=== PATIENT | female | born 1980 | race Hispanic/Latino ===

== ENCOUNTER 2018-04-17 10:02 | Outpatient (CLI) | payer OTHER ==
--- NOTE | 2018-04-17 14:05 | CT ---
CT ABDOMEN AND PELVIS WITH IV CONTRAST: Multiple axial tomograms obtained through the abdomen and pelvis with IV enhancement. Oral contrast was administered. INDICATION: Left lower quadrant pain. COMPARISON: Comparison is made to a CT abdomen and pelvis dated 01/13/16. FINDINGS: Lung bases clear. Liver, spleen, and pancreas are unremarkable. Stomach and duodenum unremarkable. Adrenal glands appear normal. Kidneys unremarkable. No hydronephrosis. Small bowel loops appear normal. Appendix is not definitely identified. Colon appears unremarkable. Images through the pelvis show a mildly prominent uterus. The endometrium is mildly prominent. Both ovaries are identified and appear unremarkable. Possible involuting cysts from the right ovary show s some peripheral enhancement. No free fluid. Retroperitoneum shows nonspecific lymph nodes which a ppears table from prior exam. Aorta is unremarkable. Asymmetric sclerosis along the iliac side of the left SI joint, stable finding. IMPRESSION: 1. Mildly prominent endometrium. Uterine size is also mildly prominent. 2. Otherwise, no acute intraabdominal process identified. POS: [facility]
== END 2018-04-17 10:03 | disposition home or self-care (01) ==
LOC: SCSCT 10:02
PROVIDERS: ATTEND Internal Medicine
DX: K43.2 Incisional hernia without obstruction or gangrene (principal)
CPT/HCPCS: 74177

== ENCOUNTER 2020-01-01 09:05 | Outpatient (CLI) | payer OTHER ==
--- NOTE | 2020-01-01 10:05 | ULT ---
Exam: Pelvic ultrasound including Transabdominal, Transvaginal, And Vascular Duplex with color and spectral Doppler imaging: HISTORY: Pelvic and perineal pain, left lower quadrant pain COMPARISON: None FINDINGS: The uterus is 11.5 x 6.6 x 5.3 cm Endometrial thickness:1.0 cm Right ovary:2.2 x 1.9 x 1.7 cm Left ovary:3.3 x 1.7 x 1.8 cm with a 0.8 x 1.0 cm cyst. No abscess or significant abnormal fluid collection. Vascular duplex examination demonstrates no evidence for ovarian torsion IMPRESSION: Upper range of normal size uterus. Small left ovarian cyst.
== END 2020-01-01 09:06 | disposition home or self-care (01) ==
LOC: BICULT 09:05
PROVIDERS: ATTEND Obstetrics & Gynecology
DX: R10.2 Pelvic and perineal pain (principal); N83.202 Unspecified ovarian cyst, left side
CPT/HCPCS: 76856

== ENCOUNTER 2020-08-01 10:10 | Outpatient (CLI) | payer OTHER ==
--- NOTE | 2020-08-01 10:54 | RAD ---
EXAM: 3 views of the right shoulder HISTORY: Shoulder pain COMPARISON: PET/CT 07/21/2020 FINDINGS: There is no evidence of acute fracture or dislocation. No degenerative changes are present. No soft tissue swelling is seen. There is a 1.0 cm nodule projecting over the right upper lobe. This was not hypermetabolic on prior PET/CT. IMPRESSION: No evidence of acute osseous abnormality.
== END 2020-08-01 10:11 | disposition home or self-care (01) ==
LOC: BICRAD 10:10
PROVIDERS: ATTEND Internal Medicine
DX: M25.511 Pain in right shoulder (principal)

== ENCOUNTER 2020-10-26 09:19 | Outpatient (CLI) | payer OTHER ==
--- NOTE | 2020-10-26 09:43 | RAD ---
EXAM: Two views chest PROVIDED CLINICAL HISTORY: Dyspnea COMPARISON: 09/21/2014 FINDINGS: Cardiac and mediastinal silhouette appears within normal limits. Lungs appear free of significant opa city. No pleural fluid or pneumothorax apparent. IMPRESSION: No evidence for an acute cardiopulmonary process.
== END 2020-10-26 09:20 | disposition home or self-care (01) ==
LOC: BICRAD 09:19
PROVIDERS: ATTEND Internal Medicine Critical Care Medicine
DX: R06.00 Dyspnea, unspecified (principal)
CPT/HCPCS: 71046

== ENCOUNTER 2020-12-28 11:47 | Outpatient (CLI) | payer OTHER ==
--- NOTE | 2020-12-28 13:36 | MMO ---
Bilateral MAMMO Bilat Screen [facility]. CLINICAL HISTORY: Patient is 40 years old and is seen for screening. The patient has no family history of breast cancer. The patient has no personal history of cancer. VIEWS: The views performed were: bilateral craniocaudal with tomosynthesis and bilateral mediolateral oblique with tomosynthesis. This study has been interpreted with the assistance of computer-aided detection. MAMMOGRAM FINDINGS: The breasts are heterogeneously dense, which could obscure a lesion on mammography. Benign calcifications are noted bilaterally. There are no suspicious masses, suspicious calcifications, or new areas of architectural distortion. IMPRESSION: THERE IS NO MAMMOGRAPHIC EVIDENCE OF MALIGNANCY. A ROUTINE FOLLOW-UP MAMMOGRAM IN 1 YEAR IS RECOMMENDED. THE RESULTS OF THIS EXAM WERE SENT TO THE PATIENT. ACR BI-RADS Category 2 - Benign finding MAMMOGRAPHY NOTE: 1. A negative mammogram report should not delay a biopsy if a dominant of clinically suspicious mass is present. 2. Approximately 10% to 15% of breast cancers are not detected by mammography. 3. Adenosis and dense breasts may obscure an underlying neoplasm. Reported by: SHARON DIAZ MD Electonically Signed: [id number]
== END 2020-12-28 11:48 | disposition home or self-care (01) ==
LOC: BICMAMMO 11:47
PROVIDERS: ATTEND Internal Medicine
DX: Z12.31 Encounter for screening mammogram for malignant neoplasm of breast (principal)
CPT/HCPCS: 77063; 77067

== ENCOUNTER 2021-03-23 08:54 | Outpatient (CLI) | payer OTHER ==
[2021-03-23] MEDS ORDERED: Iopamidol 300 61% 50 ML VIAL FS ONE (09:45)
[2021-03-23] MEDS ORDERED: Lidocaine 1% PF 10 ML AMP ONE (09:45)
[2021-03-23] MEDS ORDERED: EPINEPHrine 1 MG/ML AMP ONE (09:45)
[2021-03-23] MEDS ORDERED: Gadobenate Dimeglumine 529 MG/1 ML (20ML VIAL) ONE (09:45)
== END 2021-03-23 08:55 | disposition home or self-care (01) ==
LOC: RAD 08:54
PROVIDERS: ATTEND Orthopaedic Surgery
DX: M25.511 Pain in right shoulder (principal); M75.111 Incomplete rotator cuff tear or rupture of right shoulder, not specified as traumatic
CPT/HCPCS: 23350; A9577; J0171; J2001; Q9967